=== PATIENT | female | born 1980 | race Hispanic/Latino ===

== ENCOUNTER 2019-06-05 13:50 | Outpatient (CLI) | payer OTHER ==
--- NOTE | 2019-06-05 15:35 | ULT ---
OB ULTRASOUND: 06/05/19 HISTORY: anatomy. FINDINGS: A single live intrauterine gestation seen with measurements corresponding to an estimated gestational age of 20 weeks, 3 days and CHAD at 10/20/2019. The estimated weight measures 330 or 12 oz (33% by Hadlock criteria). measurements are as follows: BPD 4.97 cm 21 weeks, 1 day HC 17.96 cm 20 weeks, 3 days AC 14.92 cm 20 weeks, 2 days FL 3.14 cm 19 weeks, 6 days heart rate measures 161 beats per minute. Cervical length measures 4.10 cm. Amniotic fluid appe ars adequate. A three vessel cord, cord insertion, kidneys, bladder, stomach, four chamber heart, lateral diamond tricles, cerebellum, bladder, spine, lips/nose, upper and lower extremities are visualized. No defini te anomalies are seen except for mild hydronephrosis involving both kidneys. IMPRESSION: 1. Single live IUP of 20 weeks, 3 days estimated gestational age and CHAD at 10/20/2019. 2. Mild bilateral hydronephrosis. POS: RICARDO
== END 2019-06-05 13:51 | disposition home or self-care (01) ==
LOC: BICULT 13:50
PROVIDERS: ATTEND Nurse Practitioner
DX: O09.92 Supervision of high risk pregnancy, unspecified, second trimester (principal); Z3A.20 20 weeks gestation of pregnancy; N13.30 Unspecified hydronephrosis
CPT/HCPCS: 76805

== ENCOUNTER 2019-10-05 01:20 | Inpatient (IN) | payer MEDICAID, OTHER, SELFPAY ==
[2019-10-05 02:22] LABS: Hemoglobin 12.8 g/dL (12.0-16.0); Mean Corpuscular HGB CONC 35.8 g/dL (32.0-36.0); Mean Corpuscular Hemoglobin 31.5 pg (27.0-31.0); Mean Corpuscular Volume 87.9 fL (78.0-98.0); Mean Platelet Volume 9.4 fL (7.4-10.4); Platelet Count 150 thou/uL (130-400); RBC Distribution Width 12.4 % (11.5-14.5); Red Blood Cell (RBC) Count 4.07 mill/uL (4.20-5.40); White Blood Cell (WBC) Count 8.8 thou/uL (4.8-10.8)
[2019-10-05 02:26] VITALS: BMI 25.7
[2019-10-05] MEDS ORDERED: Azithromycin 500 MG VIAL ONE (02:28)
[2019-10-05] MEDS ORDERED: Azithromycin 500 MG in Sodium Chloride 0.9% 250 ML 250 ML IVPB SCH (02:30)
[2019-10-05] MEDS ORDERED: Bicitra 30 ML UDCUP PO SCH (02:30)
[2019-10-05] MEDS ORDERED: Butorphanol Tartrate 1 MG/ML VIAL SLOW IVP PRN (02:30)
[2019-10-05] MEDS ORDERED: CEFAZOLIN 2 GM in Premix Bag 1 BAG IVPB SCH (02:30)
--- NOTE | 2019-10-05 02:31 | PDOC.EVN ---
Event Note - Event Note Event Note: OBGYN Transportation Agent Intervention at approx 0210 Asked by the patient's RN to place bedside sono to see if breech as buttocks palpated through CX, I performed bedside sono and confirmed breech on exam. Dr Meredith notified. CX=3cm. For CS for early labor at 37 weeks, arun breech.
[2019-10-05] MEDS ORDERED: Fentanyl 100 MCG/2 ML VIAL ONE (02:34)
[2019-10-05] MEDS ORDERED: Oxytocin 10 UNITS/ML VIAL ONE (02:35)
[2019-10-05] MEDS ORDERED: MORPHINE 5 MG/10 ML PF VIAL ONE (02:35)
[2019-10-05] MEDS ORDERED: EPHEDRINE 25 MG/5 ML SYRINGE ONE (02:35)
[2019-10-05] MEDS ORDERED: PHENYLEPHRINE-NS 100 MCG/ML 10 ML SYRINGE ONE (02:35)
[2019-10-05] MEDS ORDERED: Ketorolac Tromethamine 30 MG/ML VIAL ONE (02:35)
[2019-10-05] MEDS ORDERED: Dexamethasone 4 mg/ml Vial ONE (02:35)
[2019-10-05] MEDS ORDERED: Ondansetron PF 4 MG/2 ML Vial ONE (02:35)
[2019-10-05] MEDS ORDERED: L&D-Morphine 4 MG/ML VIAL SLOW IVP PRN (02:55)
[2019-10-05] MEDS ORDERED: Meperidine HCl/PF 25 MG/ML VIAL SLOW IVP PRN (02:55)
[2019-10-05] MEDS ORDERED: HYDROmorphone 2 MG/ML VIAL SLOW IVP PRN (02:55)
[2019-10-05] MEDS ORDERED: Naloxone HCl 0.4 mg/ml Vial IVP PRN ×2 (02:56)
[2019-10-05] MEDS ORDERED: Naloxone HCl 0.4 mg/ml Vial IV PRN (02:56)
[2019-10-05] MEDS ORDERED: Ketorolac Tromethamine 30 MG/ML VIAL IVP PRN (02:56)
[2019-10-05] MEDS ORDERED: Promethazine HCl 25 MG/ML VIAL IM PRN ×2 (02:56→06:01)
[2019-10-05] MEDS ORDERED: Promethazine HCl 25 MG SUPP PR PRN (02:56)
[2019-10-05] MEDS ORDERED: diphenhydrAMINE 50 MG/ML VIAL IVP PRN (02:56)
[2019-10-05 02:57] LABS: HBSAg Index 0.16 S/CO (0-0.99); Hep B Surf Ag Non-Reactive S/CO (NonReactive)
[2019-10-05] MEDS ORDERED: Communication Order-Pharmacy FS SCH (03:00)
[2019-10-05] MEDS ORDERED: Ketorolac Tromethamine 30 MG/ML VIAL IVP SCH (03:00)
[2019-10-05 04:22] LABS: Syphilis Antibody Nonreactive (Nonreactive); Syphilis Antibody Index 0.03 S/CO (<1.00 Non-Reactive)
[2019-10-05] MEDS ORDERED: diphenhydrAMINE 25 MG CAP PO PRN (06:01)
[2019-10-05] MEDS ORDERED: Bisacodyl 10 MG SUPP PR PRN (06:01)
[2019-10-05] MEDS ORDERED: hydrALAZINE 20 MG/ML VIAL SLOW IVP PRN (06:01)
[2019-10-05] MEDS ORDERED: Lanolin Ointment 7 GM TUBE TOP PRN (06:01)
[2019-10-05] MEDS ORDERED: Simethicone Chewable 80 MG TAB PO PRN (06:01)
[2019-10-05] MEDS: Ondansetron PF 4 MG/2 ML Vial IVP PRN ×2 (07:19→13:23)
[2019-10-05] MEDS ORDERED: Adacel (T-DAP) 0.5 ML SYRINGE IM ONE (09:00)
[2019-10-05] MEDS: Ketorolac Tromethamine 30 MG/ML VIAL IVP SCH ×3 (09:11→21:15)
[2019-10-05] MEDS: Prenatal Vitamin 1 TAB PO SCH (09:13)
[2019-10-05] MEDS: Docusate Calcium (SURFAK) 240 MG CAP PO SCH ×2 (09:13→21:15)
[2019-10-05] MEDS: Ferrous Sulfate 325 MG TAB PO SCH ×2 (09:14→21:15)
[2019-10-05] MEDS ORDERED: HYDROcodone/Acetaminophen 5/325 mg Tablet PO PRN (15:00)
[2019-10-05] MEDS ORDERED: Meperidine HCl/PF 25 MG/ML VIAL IM PRN (15:00)
--- NOTE | 2019-10-05 15:01 | OP ---
DATE OF PROCEDURE: 10/05/2019 SURGEON: Erlin Meredith MD DIRECTOR SYSTEMS: Britni Mckeon MD PROCEDURE PERFORMED: Primary low-transverse section. PREOPERATIVE DIAGNOSES: 1. Term intrauterine . 2. Arun breech presentation. POSTOPERATIVE DIAGNOSES: 1. Term intrauterine . 2. Arun breech presentation. ANESTHESIA: Spinal. INDICATION: The patient is a 39-year-old, G5, P4 female at 37.5 weeks who presented in active labor with spontaneous rupture of membranes with arun breech presentation requiring primary low-transverse for delivery. PROCEDURE IN DETAIL: After risks, benefits, and alternatives were explained to the patient, she gave informed consent. Preoperative antibiotics included cefazolin 2 g IV and azithromycin 500 mg IV. The patient was taken to the operating room. Spinal anesthesia was initiated. She was placed in the supine position with left tilt, prepped and draped in usual sterile fashion. A Pfannenstiel incision was made with a scalpel and carried out to the level of the fascia, which was sharply nicked. The fascial cut was extended bilaterally with Matta scissors. The inferior and superior edges of the cut fascial edges were elevated with Roxana clamps and underlying rectus muscles were sharply and bluntly dissected free. The recti were divided digitally and retracted manually. Peritoneum was entered bluntly and retracted manually. Bladder blade was placed. A low transverse score was made with a scalpel and the uterus was entered in the midline with a scalpel. Clear fluid was seen. The hysterotomy was extended manually. The infant was noted to be in arun breech presentation but was easily delivered by fundal pressure. Mouth and nares were bulb suctioned. Cord was clamped and cut and grossly normal male was handed to waiting nurse. Cord blood was obtained. Placenta was then delivered and found to be intact with three-vessel cord and discarded. Uterus with externalized and the endometrium was created with a dry lap. The bladder blade was placed and the uterus was closed with a running locking 1-0 Monocryl suture. After closing hysterotomy, oozing was noted all along the closure and an imbricating layer was done using 3 -0 Vicryl in a running nonlocking fashion. Following this hemostasis was noted. The abdomen was irrigated with saline and suctioned free of clots. Four sheets of Seprafilm were then placed over the hysterotomy and on the anterior aspect of the uterus. The uterus was then internalized and hysterotomy was noted to be hemostatic. The peritoneum was closed using 3-0 Vicryl in a running nonlocking fashion. The fascia was closed with a running nonlocking 0 PDS suture. The subcutaneous tissue was irrigated and there were no free bleeders. The subcutaneous layer was then approximated with 3-0 Vicryl in a running nonlocking fashion. The skin was approximated with mayur and a pressure dressing was placed. All counts were correct. The patient tolerated the procedure well, taken to the recovery room in stable condition. QBL: 424 mL. COMPLICATIONS: None. SPECIMENS: Cord blood sent to lab for blood type. FINDINGS: Grossly normal male . Grossly normal placenta with three- vessel cord, discarded. DRAINS: Carty to gravity draining clear urine. Job ID: [id number] [facility]
[2019-10-06] MEDS: Ibuprofen 800 MG TAB PO SCH ×3 (05:43→21:22)
[2019-10-06 05:56] LABS: Hemoglobin 9.5 g/dL (12.0-16.0); Mean Corpuscular HGB CONC 33.6 g/dL (32.0-36.0); Mean Corpuscular Hemoglobin 30.1 pg (27.0-31.0); Mean Corpuscular Volume 89.5 fL (78.0-98.0); Mean Platelet Volume 9.1 fL (7.4-10.4); Platelet Count 120 thou/uL (130-400); RBC Distribution Width 12.4 % (11.5-14.5); Red Blood Cell (RBC) Count 3.17 mill/uL (4.20-5.40); White Blood Cell (WBC) Count 10.6 thou/uL (4.8-10.8)
[2019-10-06] MEDS: Prenatal Vitamin 1 TAB PO SCH (08:45)
[2019-10-06] MEDS: Ferrous Sulfate 325 MG TAB PO SCH ×2 (08:45→21:22)
[2019-10-06] MEDS: HYDROcodone/Acetaminophen 5/325 mg Tablet PO PRN ×3 (08:45→21:22)
[2019-10-06] MEDS: Docusate Calcium (SURFAK) 240 MG CAP PO SCH ×2 (08:45→21:22)
[2019-10-07] MEDS: HYDROcodone/Acetaminophen 5/325 mg Tablet PO PRN (06:38)
[2019-10-07] MEDS: Ibuprofen 800 MG TAB PO SCH (06:39)
[2019-10-07 08:21] VITALS: BP 125/58; TEMP 97.8
[2019-10-07] MEDS: Ferrous Sulfate 325 MG TAB PO SCH (09:25)
[2019-10-07] MEDS: Prenatal Vitamin 1 TAB PO SCH (09:25)
[2019-10-07] MEDS: Docusate Calcium (SURFAK) 240 MG CAP PO SCH (09:25)
--- NOTE | 2019-10-09 04:29 | PQF ---
Nicci Allison ROLAND R MD [id number] CLINICAL DOCUMENTATION CLARIFICATION FORM: POST DISCHARGE Addendum to original discharge summary date: ____ Late entry note date: __ DATE: 10/09/2019 ATTN: Erlin Barraza Please exercise your independent, professional judgment in responding to the clarification form. Clinical indicators are provided on the bottom of this form for your review Please check appropriate box(s): [ ] Associated Diagnosis: Acute blood loss Anemia [ ] Abnormal Laboratory findings not clinically significant [ ] Other diagnosis [ ] Unable to determine In addition, please specify: Present on Admission (POA): [ ] Yes [ ] No [ ] Unable to determine For continuity of documentation, please document condition throughout progress notes and discharge summary. Thank You. CLINICAL INDICATORS - SIGNS / SYMPTOMS/ LABS are present in the medical record: Laboratory 10/04 RBC 4.07, hgb 12.8, Hct 35.8 Laboratory 10/05 RBC 3.17, Hgb 9.5, hct 28.4 Vitla signs 10/04 Temp 98.8, Pulse 55, Resp 18, BP 118/64 Operative report p2 10/04 - Estimated blood loss 424 ml RISK FACTORS Operative report p1 10/04 - Term Intrauterine Operative report p1 10/04 - Tomas breech presentation Operative report p1 10/04 - s/p Low transverse section TREATMENT Series of Hgb and Hct labs ordered 10/04 MAR 10/04 Ferrous Sulfate 325 mg oral (This form is maintained as a part of the permanent medical record) 2014 [employer]. All Rights Reserved [email or web address]
== END 2019-10-07 13:15 | disposition home or self-care (01) | DRG 788 ==
LOC: L&D/OP 01:20 → L&D 01:30 → 3SW 15:13
PROVIDERS: ADMIT Family Medicine; ATTEND Family Medicine
PROC: 10D00Z1 Extraction of Products of Conception, Low, Open Approach (ICD-10-PCS; principal; 2019-10-05)
PROC: 3E0P05Z Introduction of Adhesion Barrier into Female Reproductive, Open Approach (ICD-10-PCS; 2019-10-05)
DX: O32.1XX0 Maternal care for breech presentation, not applicable or unspecified (principal); Z3A.37 37 weeks gestation of pregnancy; Z37.0 Single live birth
CPT/HCPCS: 36415; 51702; 85027; 86780; 86850; 86900; 86901; 87340; 99285; J0456; J0690; J1100; J1885; J2274; J2405; J2590; J3010